=== PATIENT | male | born 1940 ===

== ENCOUNTER 2022-11-02 05:55 | Day surgery (SDC) | payer OTHER ==
[~2022-11-02] VITALS: Ht 182.9 cm; Wt 97.5 kg
[~2022-11-02 05:55] MED LIST: AZOR 5-20 MG T1 EACH PO; CHILDREN'S ASPI81 MG PO; INSULIN SYRING1 EA29 SUBCUTANEO; SYNTHROID175 MCG PO
== END 2022-11-02 11:05 | disposition home or self-care (01) ==
LOC: CIR.AMB 05:55
PROVIDERS: ATTEND Orthopaedic Surgery Hand Surgery
DX: G56.02 Carpal tunnel syndrome, left upper limb (principal); I10 Essential (primary) hypertension; F17.210 Nicotine dependence, cigarettes, uncomplicated; E11.22 Type 2 diabetes mellitus with diabetic chronic kidney disease; N18.30 Chronic kidney disease, stage 3 unspecified; Z20.822 Contact with and (suspected) exposure to COVID-19